=== PATIENT | male | born 1990 | race Two or more races ===

== ENCOUNTER 2017-05-06 00:32 | Emergency (ER) | payer OTHER ==
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
== END 2017-05-06 02:15 | disposition home or self-care (01) ==
LOC: JD.ED 00:32
DX: T54.2X1A Toxic effect of corrosive acids and acid-like substances, accidental (unintentional), initial encounter (principal); T20.56XA Corrosion of first degree of forehead and cheek, initial encounter; Y99.0 Civilian activity done for income or pay
CPT/HCPCS: 99283